=== PATIENT | female | born 1950 | race African-American/Black ===

== ENCOUNTER 2020-09-25 10:39 | Emergency (ER) | payer OTHER, BC ==
[2020-09-25 11:13] VITALS: TEMP 98.1; BMI 26.4
[2020-09-25] MEDS ORDERED: SODIUM CHLORIDE 0.9% 500 ML INFUS.BAG IV ONE (11:24)
[2020-09-25 11:39] LABS: BASO % 1.5 % (0-2.0); EOS % 2.7 % (0-4.5); HEMATOCRIT 36.2 % (32.4-45.2); HEMOGLOBIN 11.7 GM/dl (10.7-15.3); LYMPH % 33.4 % (8-40); MCH 29.9 pg (25.7-33.7); MCHC 32.3 g/dl (32.0-36.0); MEAN CELL VOLUME 92.5 fl (80-96); MONO % 9.4 % (3.8-10.2); PLATELET COUNT 233 K/MM3 (134-434); RBC 3.92 M/mm3 (3.60-5.2); RDW 12.6 % (11.6-15.6)
[2020-09-25 12:03] LABS: ALBUMIN 3.5 g/dl (3.4-5.0); BILIRUBIN,TOTAL 0.8 mg/dl (0.2-1); CALCIUM 9.1 mg/dl (8.5-10); POTASSIUM 4.3 mmol/L (3.5-5.1); TOT PROT 6.6 g/dl (6.4-8.2)
[2020-09-25 12:41] VITALS: PULSE 66
[2020-09-25 15:03] VITALS: BP 108/60
== END 2020-09-25 15:04 | disposition home or self-care (01) ==
LOC: FER 10:39
DX: R53.83 Other fatigue (principal)
CPT/HCPCS: 36415; 71046-TC-FY; 80053; 81003; 82550; 82553; 84443; 84484; 85025; 87086; 87186; 93005; 99285-25

== ENCOUNTER 2021-09-22 15:19 | Emergency (ER) | payer OTHER, BC ==
[2021-09-22 15:26] VITALS: BP 131/75; PULSE 73; TEMP 98; BMI 26.4
[2021-09-22] MEDS ORDERED: SODIUM CHLORIDE 0.9% 500 ML INFUS.BAG IV ONE (17:26)
[2021-09-22] MEDS ORDERED: MECLIZINE HCL 25 MG TABLET (FP) PO ONE (18:13)
[2021-09-22 18:24] LABS: PH,URINE 5.5 (5.0-8.0); URINE APPEARANCE Clear; URINE BILIRUBIN Negative (NEGATIVE); URINE COLOR Yellow; URINE GLUCOSE (UA) Negative (NEGATIVE); URINE KETONE Trace (NEGATIVE); URINE LEUK ESTERASE Negative (NEGATIVE); URINE NITRITE Negative (NEGATIVE); URINE PROTEIN Negative (NEGATIVE); URINE UROBILINOGEN 0.2 mg/dL (0.2-1.0)
[2021-09-22 18:36] LABS: BASO % 0.5 % (0-2.0); EOS % 1.9 % (0-4.5); HEMATOCRIT 37.6 % (32.4-45.2); HEMOGLOBIN 12.9 GM/dL (10.7-15.3); LYMPH % 43.7 % (8-40); MCH 30.6 pg (25.7-33.7); MCHC 34.4 g/dl (32.0-36.0); MEAN CELL VOLUME 89.2 fl (80-96); MEAN PLT VOLUME 9.6 fl (7.5-11.1); MONO % 7.7 % (3.8-10.2); NEUT % 46.2 % (42.8-82.8); PLATELET COUNT 208 10^3/uL (134-434); RBC 4.22 M/mm3 (3.60-5.2); RDW 13.7 % (11.6-15.6)
[2021-09-22 18:51] LABS: CHLORIDE 112 mmol/L (98-107); SODIUM 143 mmol/L (136-145)
[2021-09-22 18:53] LABS: CALCIUM 9.2 mg/dL (8.5-10.1)
[2021-09-22] MEDS ORDERED: MECLIZINE HCL 25 MG TABLET (FP) ONE (18:53)
[2021-09-22 18:54] LABS: ALBUMIN 3.7 g/dl (3.4-5.0); ANION GAP 4 MMOL/L (8-16); BLOOD UREA NITROGEN 18.6 mg/dL (7-18); CO2 27 mmol/L (21-32); GLUCOSE,RANDOM 92 mg/dL (74-106)
[2021-09-22 18:57] LABS: SGOT/AST 24 U/L (15-37); SGPT/ALT 23 U/L (13-61)
[2021-09-22 18:59] LABS: BILIRUBIN,TOTAL 0.6 mg/dL (0.2-1); TOT PROT 7.8 g/dl (6.4-8.2)
[2021-09-22 19:00] LABS: ALK PHOS 103 U/L (45-117)
== END 2021-09-22 22:10 | disposition home or self-care (01) ==
LOC: JER 15:19
DX: R42 Dizziness and giddiness (principal); R07.9 Chest pain, unspecified
CPT/HCPCS: 36415; 71046-TC-FY; 80053; 81003; 82550; 82553; 82962; 84443; 84484; 85025; 87086; 93005; 93010; 99285-25